=== PATIENT | female | born 1950 | race Caucasian/White ===

== ENCOUNTER → 2018-04-15 09:16 | Outpatient (CLI) | payer MEDICARE, OTHER, SELFPAY ==
--- NOTE | 2018-04-15 09:20 | RAD_ITS ---
PROCEDURE: Fluoroscopic guided Hip Injection DATE: April 15, 2018. INDICATION: Female, 67 years old. Chronic right hip pain. PHYSICIAN: Nehemias Moon M.D. MEDICATIONS: 6 mg of betamethasone and 3 cc of 1% lidocaine. 2% Lidocaine administered subcutaneously for local anesthesia. ACCESS SITE: Right hip. NEEDLE: 22-gauge spinal needle. FLUOROSCOPY TIME (if supplied): (33 seconds) minutes/seconds FINDINGS: The risks, benefits, and alternatives to the procedure were explained to the patient. The specific risks of bleeding, infection, and neurovascular injury were detailed and accepted. Witnessed informed consent was obtained. A 22-gauge spinal needle was positioned under radiographic fluoroscopic localization. Approximately 2 cc of Isovue-300 instilled for localization purposes. Medication was then injected. The patient tolerated the procedure well without any immediate complications. The patient was placed supine with head elevated and returned to the floor in stable condition. RAD/Inj/Asp Mason Jt Should/Hip/Knee IMPRESSION: 1. Successful fluoroscopic guided hip injection. Electronically Signed: Nehemias Moon MD at 10:53 EDT Tel [phone], Service support ,
== END ==
PROVIDERS: Family Provider Family Medicine; PCP Family Medicine; Visit Provider Specialist
DX: M16.11 Unilateral primary osteoarthritis, right hip (principal)
CPT/HCPCS: 20610; 77002; Q9967; J0702

== ENCOUNTER 2018-07-19 08:28 | Inpatient (IN) | payer MEDICARE, OTHER, SELFPAY ==
--- NOTE | 2018-07-08 12:58 | HP.PCM_ITS ---
History and Physical DATE OF SURGERY: 07/19/2018 SCHEDULED PROCEDURE: Right Total Hip Arthroplasty HISTORY OF PRESENT ILLNESS: This is a 67-year-old female who has been having ongoing pain in the right hip for several year duration. Patient's pain is constant, aching, and sharp. She has increased pain for going up and down stairs, driving, sitting for extended periods of time and walking any amount of distance. Patient does have start up pain. Pain is located in the lateral hip, thigh into the knee. Patient states the pain does awaken her at night. Patient has tried previous conservative measures consisting of rest, ice, heat, elevation with no relief in symptoms. Patient did undergo a intra-articular cortisone injection into the hip with no relief in symptoms. Patient has tried palliative care nurse practitioner with no relief in symptoms. She has been on oral medications consisting of tramadol, Aleve, and gabapentin with minimal relief in symptoms. Patient has also been through yoga to try to maintain her flexibility. She does continue to walk with a limp and feels she has become weaker with the leg. Patient has medical history pertinent for migraines. She denies any chest pain, shortness of breath, fevers chills, or recent infections. We have obtain surgical clearance from patient's primary care physician Dr. Hernández. After failing conservative measures and discussing all treatment options with Dr. Eliezer Vallejo the patient does wish to proceed with a direct anterior right total hip arthroplasty. REVIEW OF SYSTEMS: ROS: Const: Denies change in appetite, fever and weight change. CV: Denies chest pain, heart murmur and irregular heartbeat. Resp: Denies cough, pneumonia, shortness of breath, tuberculosis and wheezing. GI: Denies constipation, diarrhea, heartburn, nausea, rectal itching, bloody stools and vomiting. : Denies incontinence. Musculo: Reports trouble walking and weakness, but denies leg swelling and pain. Skin: Denies Raynaud's, history of shingles and tattoo. Neuro: Denies ambulatory dysfunction, dizziness, numbness/tingling and tremor. Psych: Denies anxiety, insomnia and stress. Mustapha/Lymph: Denies anemia, bleeding/bruising tendency and past transfusion. Reviewed, no changes. PAST MEDICAL HISTORY: Advance Care Plan: No Advance Directives Effective Date: 04/07/2018 PMH: Medical Problems: No Current Problems Accidents: None Surgical Hx: lt wrist ganglion cyst removal Anesthesia Complications: None Assistive Devices: Contacts Reviewed, no changes. SOCIAL HISTORY: SH: Marital: .Occupation: Retired.Hand Dominance: Right-handed. Personal Habits: Cigarette Use: Never Smoked Cigarettes.Cigars: Never Smoked Cigars.Pipe: Never Smoked A Pipe.Smokeless Tobacco: Never Used Smokeless Tobacco.Alcohol: Occasionally.Drug Use: Denies Use.Enjoy Exercising: Daily. Reviewed, no changes. VITALS: Ht: 64 Wt: 127lb Wt k.607 BMI: 21.8 BP: 111/69 Pulse: 73 Resp: 16 T: 97.1 T: 36.2C ALLERGIES: Codeine MEDICATIONS: Celecoxib 200 mg 1 tab by mouth daily with food, Advil 200 mg 1po qday, Tylenol 325 mg prn pain, Gabapentin 300 mg 1 by mouth three times a day, Hydroxyzine HCL 25 mg prn, Imitrex 50 mg prn PRE-OP EXAM: General appearance:NORMAL Other: Eyes: Conjunctivae and lids: NORMAL Pupils: ERR Ears, Nose, Mouth, and Throat: NORMAL Other: Inspection of lips, teeth and gums: NORMAL Other: Neck: Examination of neck: no masses noted. Respiratory: Assessment of respiratory effort: NORMAL Other: Auscultation of lungs: clear to auscultation no wheezes, rhonchi or rales. Cardiovascular: Auscultation of heart: regular rate and rhythm, no murmurs, gallops or rubs. Exam of carotid arteries: NORMAL Other: Gastrointestinal: Exam of abdomen: soft, nontender, nondistended bowel sounds present. PHYSICAL EXAMINATION: Patient walks with a limping gait. Patient has increased pain with range of motion of right hip. Hip flexion 110, internal rotation to 20, external rotation to 30. Patient has 4/5 hip flexion on the right. Sensation intact to light touch. Neurovascularly intact. IMAGING STUDIES: X-ray of the right hip does reveal joint space narrowing, subchondral sclerosis, and osteophyte formation consistent with moderate to severe osteoarthritis. There is also subchondral cyst in the weightbearing portion of the acetabular dome. IMPRESSION: 1. Moderate to severe right hip osteoarthritis 2. Migraines PLAN: Dr. Vallejo did discuss and review with the patient all treatment options including surgical versus nonsurgical options. Patient does wish to proceed with the above-stated procedure. Potential risks, benefits, and complications of the procedure were discussed in detail including but not limited to , infection, nerve and blood vessel damage, persistent pain, numbness, tingling, paresthesias, blood clot, pulmonary embolism, and requirement for possible further surgery. The patient expressed full understanding and has no further questions for the doctor. Patient does agree to proceed with the above-stated procedure and has signed the surgery consent form. This dictation was created using voice recognition software. Phonetic and/or grammatical errors may exist. ___ I have re-examined the patient. There are no clinical changes since date of exam. ___ See progress notes for changes. ___ Dictated on admission Date: Time: Signature:
[2018-07-08 13:09] VITALS: BP 116/75; PULSE 71; RESP 16; TEMP 36.8; O2SAT 98; BMI 21.8
--- NOTE | 2018-07-08 13:23 | SDCEKG_ITS ---
Test Reason : Blood Pressure : / mmHG Vent. Rate : 073 BPM Atrial Rate : 073 BPM P-R Int : 152 ms QRS Dur : 078 ms QT Int : 418 ms P-R-T Axes : 078 056 069 degrees QTc Int : 460 ms Normal sinus rhythm Normal ECG Confirmed by EULOGIO BERNAL, ALISSA ([id number]), newspaper or periodical editor GEMA SHAW ([id number]) on 07/11/2018 2:59:50 PM Referred By: Eliezer Vallejo Confirmed By:ALISSA KRISHNAN MD
[2018-07-08 13:56] LABS: Absolute Lymphocyte Count 1.87 X10^3/ul (0.83-4.51); Absolute Neutrophil Count 3.5 X10^3/uL (2.0-7.7); Basophil# 0.02 X10^3/uL; Basophil% 0.3 % (0-1); Eosinophil# 0.11 X10^3/uL; Eosinophils% 1.9 % (0-5); Hematocrit 39.4 % (37-47); Lymphocyte # 1.87 X10^3/ul (4.0); Mean Corpuscular Hgb 28.4 pg (27.0-32.0); Mean Corpuscular Volume 86.2 fL (81-99); Mean Platelet Vol. 9.3 fl (6.2-12.0); Monocyte# 0.34 X10^3/uL; Monocyte% 5.8 % (0-10); Neutrophil % 59.8 % (47-70); Platelet Count 324 K/mm3 (150-450); RBC Distribution Width CV 13.3 % (11.6-14.6); RBC Distribution Width SD 41.4 fl (35.1-43.9); Red Blood Count 4.57 M/mm3 (4.2-5.4); White Blood Count 5.9 K/mm3 (4.4-11.0)
[2018-07-08 13:57] LABS: POSITIVE COUNT NO; POSITIVE DIFFERENTIAL NO; POSITIVE MORPHOLOGY NO
[2018-07-08 14:27] LABS: Anion Gap 6 (5-15); BUN 18 mg/dL (7-18); BUN/Creat Ratio 19.3 RATIO (10-20); Calcium,Total 8.7 mg/dL (8.5-10.1); Chloride 105 mmol/L (98-107); Creatinine, Serum 0.93 mg/dL (0.55-1.02); EST Glomerular Filtration Rate 64 mL/min (>60); Est Glom Filt Rate - Afr Amer 77 mL/min (>60); Estimated Creatinine Clearance 52.08 ml/min; Glucose 118 mg/dL (74-106); Potassium 4.1 mmol/L (3.5-5.1); Sodium Level 138 mmol/L (136-145)
--- NOTE | 2018-07-14 13:28 | CASEMGMT ---
Call placed to patient to discuss discharge needs after upcoming surgery. Patient plans to return home with assistance from and daughters. Has outpatient physical therapy set up at [facility], and daughters will assist with transportation to/from. Patient does not have a walker yet, does not have a toilet riser or shower seat. Has bed and bath on 1st level of home. There are 1-2 steps up into home from outside. Informed patient that RN-CM will likely follow up after surgery. Shell Prasad LPN Clinical Support
[2018-07-19] VITALS (14 sets, daily range): BP systolic 100–140; BP diastolic 58–79; PULSE 64–91; RESP 16–18; TEMP 36.5–37.1; O2SAT 95–100; BMI 23.2
[2018-07-19] MEDS: Lactated Ringers 1,000 ML 999 ML IV (08:55)
[2018-07-19] MEDS: Scopolamine 1mg/72hr Patch 1 PATCH TD (09:00)
[2018-07-19] MEDS: Celecoxib 200 MG Capsule 400 MG PO (09:05)
[2018-07-19] MEDS: Acetaminophen 500 MG Tablet 1000 MG PO ×2 (09:05→20:47)
[2018-07-19] MEDS: oxyCODONE HCl Cr 10 MG Tablet PO (09:05)
[2018-07-19] MEDS: Cefazolin 2 GM in 0.9% Normal Saline 100 ML IV (10:40)
--- NOTE | 2018-07-19 10:45 | RAD_ITS ---
STUDY: X-RAY - RIGHT HIP REASON FOR EXAM: Female, 67 years old. Intraoperative right hip replacement. TECHNIQUE: Single intraoperative radiograph of the right hip. COMPARISON: None. FINDINGS/ RAD/Hip 1 view with Pelvis IMPRESSION: Saved single intraoperative AP radiograph of the right hip hemiarthroplasty is provided for documentation purpose only. Electronically Signed: Makayla Malone MD at 14:45 EDT Tel , Service support ,
--- NOTE | 2018-07-19 12:02 | PCM.OPRPT ---
Report of Operation Date of Procedure: 07/19/18 Pre-Operative Diagnosis: Right hip primary osteoarthritis Post-Operative Diagnosis: Right hip primary osteoarthritis Surgery/Procedure Performed:: Right direct anterior total hip replacement Description of Surgical Findings:: Stable hip with equal leg lengths monomer recovery operator: Guzman Jack Type of Anesthesia:: Spinal Anesthesiologist: Mak Piper Special Medications: 2 g Ancef, 1 g TXA at incision, 1 g TXA closure, 10 mg Decadron, joint cocktail (5 mg Duramorph, 30 mL of 0.5% Ropivicaine, 1000 units of epinephrine, 30 mg of Toradol) Specimen's removed: Bony cuts Estimated Blood Loss (mL): 200 ML Fluids Replaced: 500 ML crystalloid Description of Procedure: Components used: 1. Accolade 2 Lolis femoral stem size 3 127? 2. [place] trident acetabular shell size 48 mm 3. [place] X3 polyethylene D 4. Lolis Biolox delta 36mm, -2.5mm femoral head Brief history operative indications: 67 yo F who failed conservative measures for their hip osteoarthritis. X-rays were consistent with osteoarthritis including joint space narrowing, osteophyte formation and subchondral cysts. Total hip replacement was discussed with the patient with risks and benefits including but not limited to blood loss, DVTs, PEs, neurovascular damage, dislocation, general risks of anesthesia including loss of life. Patient demonstrated an understanding medical clearance is obtained the patient was consented for surgery. Procedure: On the date of procedure the patient's R hip was marked in the preoperative area. Patient was then taken back to the operating room where anesthesia assumed control of the C-spine and airway and administered anesthetic. Patient was transferred to the operating table and placed in the supine position. The hips were placed at the break of the bed and a sacral bump was placed. The R lower extremity was then prepped out in a sterile fashion using chlorhexidine while the surgeon scrubbed. The PA was vital in the positioning of the patient. Upon reentering the room the R lower extremity was draped in the standard orthopedic fashion and the incision was marked. A timeout was called and everyone agreed upon the side, the site, the procedure be performed, antibody given, and patient's identity. At this time incision was made through skin, subcutaneous tissue, and fat down to fascia. The fascia was then incised and the TFL was retracted laterally. A retractor was placed on the lateral border of the femoral neck. Attention was directed to the inferior portion of the approach and all crossing vessels were identified and appropriately coagulated. A retractor was then placed on the medial portion of the femoral neck. The anterior capsule was then cleared of all soft tissue and then H shaped capsulotomy was made. The retractors were then placed inside the capsule. The femoral neck was identified and a cleanup cut was made. At this time a power corkscrew was used to remove the femoral head. Attention was then turned toward the acetabulum where the soft tissues were appropriately retracted and the acetabulum was sequentially reamed to 48 mm. A 48 mm cup was then selected and impacted into place. Acetabular liner was impacted into place and locking mechanism was verified. The position of the acetabular cup was then verified under live fluoroscopy. Attention was then turned to the femur. Soft tissue releases on the medial and lateral femoral neck were appropriately done, the leg was externally rotated and lateralized. A Fernandez retractor was placed medially and proximally to the greater trochanter this allowed appropriate visualization and exposure of the femoral canal. Rongeour was then used to remove excess lateral bone. A canal finder and entry broach were used to open the proximal canal. Once we verified we were down the femoral canal we subsequently broached up to a size 3 femur. The appropriate neck was placed in the previously selected head was trialed with a -2.5 mm neck. Traction was pulled and the hip was reduced with internal rotation. Once it was appropriately reduced and stability was checked. There was minimal shuck, equal leg lengths and appropriate stability with hyperextension and external rotation as well as with 90? flexion and internal rotation. Fluoroscopy was then also used to verify the position of the components and leg lengths using the contralateral side for comparison. The trial components were then dislocated the proximal femur was again exposed and the components were removed from the wound. The final components were verified and opened. The wound was copiously irrigated out with normal saline. The acetabulum was checked for any residual debris. The final components were placed and impacted. Traction and internal rotation were again used to reduce the hip. After adequate reduction the hip remained stable with appropriate leg lengths. The final components were once again checked with live fluoroscopy and were found to be satisfactory. The wound was then copiously irrigated with normal saline once more, and hemostasis was obtained. Closure was then done using #1 Vicryl runner to close the fascia. A 2-0 vicryl interuppted sutures were used to close the subcutaneous skin. A 3-0 Monocryl and Steri-Strips were used for final skin closure. A Silverlon dressing was placed. Patient was awakened by anesthesia and transferred to the [facility]. Patient was then transferred to the PACU for recovery. Postoperative plan: Patient will get 24 hours postop antibiotics. Patient will get in-house physical therapy and will be weight-bear as tolerated. Patient will follow up in office in 2 weeks for a wound check and x-rays. During the course of the procedure the physician occupational therapist's assistant played a vital role. His intimate knowledge of my steps in the procedure aided in safe and expedient completion of the procedure. The PA played a vital rolls in positioning particularly in obtaining the appropriate positioning of the sacral bump. The PA was also vital in the retraction of soft tissues during the exposure and especially the femoral work as this is a vital part of the procedure to prevent complications and fractures. The PA was also vital and protecting soft tissues during times of bony cuts and reaming. He also played a vital role in closure with my direct supervision. The PA was also important during reduction and dislocation of the joint and trials intraoperatively. Grafts/Implants Used: Lolis Accolade 2, trident 2 - Complications None - Admit VTE Documentation VTE Present on Admission: No VTE Mechan Device Prophylaxis: SCD's, Thigh High AMRIT Hose VTE Pharm Prophylaxis ordered?: Yes
--- NOTE | 2018-07-19 13:24 | RAD_ITS ---
STUDY: X-RAY - PELVIS AND RIGHT HIP REASON FOR EXAM: Female, 67 years old. Postop. TECHNIQUE: Radiological exam, hip, unilateral, with pelvis when performed; 2 or 3 views. COMPARISON: Right hip arthrogram April 15, 2018; intraoperative spot films of the right hip 1155 hours. FINDINGS: There is a non-specific bowel gas pattern. There are multiple calcified phleboliths in the pelvic soft tissues. Normal visualized rosalie and sacrum. Normal bilateral superior and inferior pubic rami. There are early degenerative changes of the pubic symphysis. Normal bilateral ischial tuberosities. The patient has undergone right total hip arthroplasty. Following resection of the femoral head and neck, a metal bipolar hip prosthesis was placed. The acetabular and femoral components appear well seated, and in anatomic alignment. Gas lucencies in the adjacent soft tissues are consistent with recent surgery. There is no demonstrated acute fracture. RAD/Hip Min 2 Views (Portable) IMPRESSION: Status post right total hip arthroplasty. Electronically Signed: Tawanda Fabian MD at 13:46 EDT , Service support ,
[2018-07-19] MEDS: Lactated Ringers 1,000 ML 125 ML IV (14:50)
[2018-07-19] MEDS: Morphine 2 MG/ML Syringe IV ×2 (14:51→18:40)
[2018-07-19] MEDS: Rizatriptan Benzoate 10 MG Tablet PO (16:39)
[2018-07-19] MEDS: Meloxicam 7.5 MG Tablet PO (16:39)
[2018-07-19] MEDS: oxyCODONE 5 MG Tablet PO ×2 (16:39→20:48)
[2018-07-19] MEDS: Famotidine 20 MG Tablet PO (16:40)
[2018-07-19] MEDS: Aspirin 81 MG TAB.CHEW PO (16:40)
[2018-07-19] MEDS: Cefazolin 1 GM/50 ML BAG IV (18:54)
[2018-07-19] MEDS: hydrOXYzine PAM 25 MG Capsule PO (20:46)
[2018-07-19] MEDS: Senna/Docusate Sodium 1 Tablet 2 TABLET PO (20:47)
--- NOTE | 2018-07-19 20:53 | NURSING ---
Meds scheduled for 2200 given early per pt request. Pt hoping to get some rest.
[2018-07-19] MEDS: Ketorolac 15 MG/ML Vial IV (23:47)
[2018-07-19] MEDS: 0.9% NaCl Peripheral Flush Adult/Peds IV (23:47)
[2018-07-20] MEDS: oxyCODONE 5 MG Tablet PO ×2 (03:13→09:24)
[2018-07-20] MEDS: Cefazolin 1 GM/50 ML BAG IV (03:13)
[2018-07-20 05:28] VITALS: BP 126/68; PULSE 78; RESP 16; TEMP 37.8; O2SAT 93
[2018-07-20] MEDS: Acetaminophen 500 MG Tablet 1000 MG PO (05:32)
[2018-07-20] MEDS: 0.9% NaCl Peripheral Flush Adult/Peds IV (05:32)
[2018-07-20 06:17] LABS: Hematocrit 33.7 % (37-47); Mean Corp Hgb Conc 32.6 g/gl (32-36); Mean Corpuscular Hgb 28.5 pg (27.0-32.0); Mean Corpuscular Volume 87.3 fL (81-99); Mean Platelet Vol. 8.9 fl (6.2-12.0); Platelet Count 292 K/mm3 (150-450); RBC Distribution Width CV 13.6 % (11.6-14.6); RBC Distribution Width SD 42.8 fl (35.1-43.9); Red Blood Count 3.86 M/mm3 (4.2-5.4); White Blood Count 6.4 K/mm3 (4.4-11.0)
[2018-07-20 06:20] LABS: Scan Indicated on CBC? Y/N NO
[2018-07-20 06:37] LABS: Anion Gap 6 (5-15); BUN 9 mg/dL (7-18); BUN/Creat Ratio 10.7 RATIO (10-20); Calcium,Total 8.2 mg/dL (8.5-10.1); Chloride 107 mmol/L (98-107); Creatinine, Serum 0.84 mg/dL (0.55-1.02); EST Glomerular Filtration Rate 72 mL/min (>60); Est Glom Filt Rate - Afr Amer 88 mL/min (>60); Estimated Creatinine Clearance 52.81 ml/min; Glucose 106 mg/dL (74-106); Potassium 3.9 mmol/L (3.5-5.1); Sodium Level 143 mmol/L (136-145)
--- NOTE | 2018-07-20 07:05 | PCM.PN.ORT ---
Subjective: The patient was sitting in bed upon examination. Patient denies any chest pain, shortness of breath, dizziness, lightheadedness, nausea or vomiting, or calf pain. Patient is complaining of pain in her right hip. Patient currently is having a migraine. Patient does have history of these migraines. No adverse overnight events. Patient states she had a very bad night with sleep. She does want to go home so she can be in her normal environment. Objective: Vital signs stable and temperature currently 100.0 ?F. Patient is able to plantarflex and dorsiflex actively. Sensation is intact to light touch to saphenous, sural, superficial and deep peroneal, and tibial distribution. Dressing is clean dry and intact. Negative Homans bilaterally, negative signs and symptoms of DVT. - Physical Exam General: Alert, Oriented x3, Cooperative, No apparent distress Vital Signs Temp Pulse Resp BP Pulse Ox 100.0 F H 78 16 126/68 H 93 07/20/18 05:28 07/20/18 05:28 07/20/18 05:28 07/20/18 05:28 07/20/18 05:28 Oxygen Delivery Method Room Air Weight: 57.606 kg Body Mass Index (BMI) 23.2 Intake and Output for Last 24 Hours 07/18/18 07/19/18 07/20/18 23:59 23:59 23:59 Intake Total 1866 / 1866 600 / 600 Output Total 950 / 950 Balance 916 / 916 600 / 600 Laboratory Tests Past 24 Hrs 07/20/18 07/20/18 05:56 05:56 WBC 6.4 RBC 3.86 L Hgb 11.0 L Hct 33.7 L MCV 87.3 MCH 28.5 MCHC 32.6 RDW 13.6 RDW Differential 42.8 Plt Count 292 MPV 8.9 Sodium 143 Potassium 3.9 Chloride 107 Carbon Dioxide 30.0 Anion Gap 6 BUN 9 Creatinine 0.84 Estim Creat Clear Calc 52.81 Est GFR (MDRD) Af Amer 88 Est GFR (MDRD) Non-Af 72 BUN/Creatinine Ratio 10.7 Glucose 106 Calcium 8.2 L Medical Necessity - Tobacco Use Smoking Status: Never smoker Assessment/Plan 1. S/P right total hip arthroplasty POD #1 2. Continue Pain Medications: Tylenol and OxyIR 3. DVT Prophylaxis: Aspirin 81 mg twice daily for 4 weeks 4. PT/OT: Weightbearing as tolerated 5. H & H: 11.0/33.7, asymptomatic 6. Encouraged Incentive Spirometry 7. Disposition: Plan will be for possible discharge home today if patient tolerates therapy and pain controlled. Patient has history of migraines and this is her chief complaint right now. Patient has Imitrex ordered. Prescriptions will be attached to chart. Patient will follow-up per postop instructions.
--- NOTE | 2018-07-20 07:15 | PCM.DC.THR ---
Discharge Diet: No Restrictions Discharge Activity: May Not Drive - while taking narcotic pain medications. May shower in (days): 1 - Turned dressing away from water Ice area for (Minutes): 20 - Every 1-2 hours while awake Weight Bearing Status: Weight bearing as tolerated Elevate: Operative Extremity Additional Activity Instructions:: Wear elastic stockings for 2 weeks. DO NOT use alcohol with narcotic pain medication. DO NOT make important decisions while taking narcotic medication. If you have problems with taking your medication (rash, itching, nausea, etc.) call the office at once. Call your doctor if your incision/area has: Increased Pain/ Swelling, Increased Redness, Foul Smelling Discharge Call your doctor if you observe: Fever of 101 or Higher Remove Dressing in (days):: 4 - Okay to remove dressing on July 24, 2018 Additional Instructions: Follow [facility] postop instructions Allergies/Adverse Reactions: Allergies codeine Allergy (Verified 07/19/18 14:15) sick, nausea, dizzy Medications to take at Discharge Hydroxyzine HCl 25 mg PO QHS 07/08/18 Sumatriptan Succinate [Imitrex] 50 mg PO .X1 PRN 07/08/18 proMETHazine tablet [Phenergan tablet] 25 mg PO Q4H PRN PRN 07/08/18 Acetaminophen [Tylenol] 1,000 mg PO Q8 #90 tab 07/20/18 Aspirin [Aspirin, Baby] 81 mg PO BIDCM #60 tab.chew 07/20/18 Famotidine [Pepcid] 20 mg PO DAILY #30 tab 07/20/18 Meloxicam [Mobic] 7.5 mg PO BIDCM #30 tab 07/20/18 Oxycodone [Oxyir] 5 - 10 mg PO Q4H PRN PRN 5 Days #60 tab 07/20/18 Senna/Docusate Sodium [Senokot-S] 2 tab PO BID #20 tab 07/20/18 The following prescriptions were given: Oxycodone [Oxyir] 5 - 10 mg PO Q4H PRN PRN 5 Days #60 tab PRN Reason: Mod-Severe Pain (-07/06) Acetaminophen [Tylenol] 1,000 mg PO Q8 #90 tab Famotidine [Pepcid] 20 mg PO DAILY #30 tab Aspirin [Aspirin, Baby] 81 mg PO BIDCM #60 tab.chew Meloxicam [Mobic] 7.5 mg PO BIDCM #30 tab Senna/Docusate Sodium [Senokot-S] 2 tab PO BID #20 tab Primary Care Physician: Mukesh Hernández MD [Primary Care Provider] - Test Results: Test results from this visit will be discussed in further detail at your follow-up appointment, if applicable. Please Follow Up With: Home health physical therapy Please Follow Up With: Guzman Jack PA-C When: 08/01/18 @ 1:30 pm
[2018-07-20] MEDS: Senna/Docusate Sodium 1 Tablet 2 TABLET PO (09:25)
[2018-07-20] MEDS: Famotidine 20 MG Tablet PO (09:25)
[2018-07-20] MEDS: Aspirin 81 MG TAB.CHEW PO (09:25)
[2018-07-20] MEDS: Rizatriptan Benzoate 10 MG Tablet PO (09:54)
--- NOTE | 2018-07-20 10:45 | CASEMGMT ---
RAUDEL OZUNA Face to Face with patient for initial transition planning/care coordination assessment. RN SULMA introduced self and role at [facility]. Patient lying in bed, alert and oriented. Patient willing to participate in assessment and is able to answer all questions appropriately. Care providers, pharmacy, and demographics verified. Patient wishes to discharge home and is setup with [facility] for Wednesday07/25/18 at 2pm for outpatient therapy with family providing transportation. Patient states that she has a walker and denies additional needs. Patient states she has no further needs or concerns at this time. CM to follow for discharge planning needs that may arise. Disposition Plan: Patient to discharge home with outpatient therapy, family support, and follow-up plans in place. Echo MEJIA, RN, CM
== END 2018-07-20 11:30 | disposition home or self-care (01) | DRG 470 ==
PROVIDERS: Admitting Provider Specialist; Family Provider Family Medicine; PCP Family Medicine; Referring Provider Specialist; Visit Provider Specialist
PROC: 0SR904A Replacement of Right Hip Joint with Ceramic on Polyethylene Synthetic Substitute, Uncemented, Open Approach (ICD-10-PCS; CPT 27284; principal; 2018-07-19 10:20)
DX: M16.11 Unilateral primary osteoarthritis, right hip (principal)
CPT/HCPCS: 36415; 73501; 73502; 76000; 80048; 85025; 85027; 87077; 87081; 93005; 97162; 97165; 99251; C1776; J7120; A4216; G0463; J2405